=== PATIENT | female | born 1965 | race African-American/Black ===

== ENCOUNTER 2017-07-13 16:03 | Inpatient (IN) | payer OTHER ==
[2017-07-13 18:32] VITALS: BMI 29.2
--- NOTE | 2017-07-13 19:23 | HP ---
CIWA Score - CIWA Score Nausea/Vomitin Muscle Tremors: 3 Anxiety: 3 Agitation: 2 Paroxysmal Sweats: 1-Minimal Palms Moist Orientation: 0-Oriented Tacttile Disturbances: 2-Mild Itch/Numbness/Burn Auditory Disturbances: 2-Mild Harshness/Frighten Visual Disturbances: 2-Mild Sensitivity Headache: 2-Mild CIWA-Ar Total Score: 20 Admission ROS [facility] - HPI Chief Complaint: I AM HERE FOR DETOX FROM ALCOHOL AND COCAINE Allergies/Adverse Reactions: Allergies Allergy/AdvReac Type Severity Reaction Status Date / Time Fish Containing Products Allergy Severe Itching Verified 09/23/16 12:41 No Known Drug Allergies Allergy Unknown Verified 09/23/16 14:01 NKDA Allergy Uncoded 09/23/16 12:42 History of Present Illness: THIS 52 YEAR OLD FEMALE WITH ALCOHOL AND COCAINE DEPENDENCE,SEEKING DETOX,SEEN IN [facility] THIS MORNING,LAST TREATMENT 09/16/16 TO 09/20/16 SYNCOPE SEIZURE IN 2010 NICOTINE DEPENDENCE DEPRESSION LONGEST OF SOBRIETY 4 YEARS NEUROPATHY AMBULATE WITH CANE FOR 3 YEARS WEIGHT LOSS FELL TODAY,ABRASION RIGHT KNEE SEEN IN [facility] Exam Limitations: No Limitations - Ebola screening Have you traveled outside of the country in the last 21 days: No Have you had contact with anyone from an Ebola affected area: No Do you have a fever: No - Review of Systems Constitutional: Loss of Appetite, Malaise, Night Sweats, Changes in sleep, Weakness, Unintentional Wgt. Loss EENT: reports: Tearing, Nose Congestion Respiratory: reports: Other (ASTHMA) Cardiac: reports: Palpitations GI: reports: Nausea, Poor Appetite, Vomiting, Abdominal cramping : reports: No Symptoms Reported Musculoskeletal: reports: Back Pain, Muscle Pain Integumentary: reports: Dryness Neuro: reports: Headache, Tremors Endocrine: reports: No Symptoms Reported Hematology: reports: No Symptoms Reported Psychiatric: reports: No Sypmtoms Reported, Judgement Intact, Mood/Affect Appropiate, Orientated x3, Depressed Patient History - Patient Medical History Hx Anemia: Yes (ON IRON) Hx Asthma: Yes (ON ALBUTEROL INHALER) Hx Chronic Obstructive Pulmonary Disease (COPD): No Hx Cancer: No Hx Cardiac Disorders: No Hx Congestive Heart Failure: No Hx Hypertension: Yes (ON LISINOPRIL 20 MGS/DAY) Hx Hypercholesterolemia: No Hx Pacemaker: No HX Cerebrovascular Accident: No Hx Seizures: Yes (POST HEAD INJURY LAST 2010) Hx Dementia: No Hx Diabetes: No Hx Gastrointestinal Disorders: No Hx Genitourinary Disorders: No Hx Sexually Transmitted Disorders: No Hx Renal Disease (ESRD): No Hx Thyroid Disease: No Hx Human Immunodeficiency Virus (HIV): Yes (ON MEDS) Hx Hepatitis C: No Hx Depression: No Hx Suicide Attempt: No Hx Bipolar Disorder: No Hx Schizophrenia: No Other Medical History: NO SUICIDAL,NO HOMICIDAL,NEUROPATHY AMBULATE WITH CANE FOR 3 YEARS - Patient Surgical History Past Surgical History: No Hx Neurologic Surgery: No Hx Cataract Extraction: No Hx Cardiac Surgery: No Hx Lung Surgery: No Hx Breast Surgery: No Hx Breast Biopsy: No Hx Abdominal Surgery: No Hx Appendectomy: No Hx Cholecystectomy: No Hx Genitourinary Surgery: No Hx Section: No Hx Orthopedic Surgery: No Other Surgical History: Tubal ligation SINCE 1991 Anesthesia Reaction: No - PPD History Previous Implant?: Yes Documented Results: Positive w/proof PPD to be Administered?: No - Reproductive History Patient is a Female of Child Bearing Age (11 -55 yrs old): Yes Last Menstrual Period: 06/25/17 (CURRENTLY MENSTRUATING ) Patient : No - Smoking Cessation Smoking history: Never smoked - Substance & Tx. History Hx Alcohol Use: Yes Hx Substance Use: Yes Substance Use Type: Alcohol, Cocaine Hx Substance Use Treatment: Yes ([facility] 09/16/16 TO 09/23/16) - Substances Abused Alcohol Route: Oral Frequency: Daily Amount used: 6 OF 24 OZS OF BEER Age of first use: 18 Date of Last Use: 07/13/17 Cocaine Route: Smoking Frequency: 1-2 times per week Amount used: 300$ Age of first use: 21 Date of Last Use: 07/13/17 Family Disease History - Family Disease History Family Disease History: CA: Father (PROSTATE - ), Mother (COLON - ) Admission Physical Exam S - Vital Signs Vital Signs: Vital Signs - 24 hr 07/13/17 18:27 Temperature 97.0 F L Pulse Rate 65 Respiratory 16 Rate - Physical General Appearance: Yes: Moderate Distress, Tremorous, Irritable, Sweating, Anxious HEENTM: Yes: Normal ENT Inspection, MELVINA, Pharynx Normal Respiratory: Yes: Lungs Clear, Normal Breath Sounds, No Respiratory Distress Neck: Yes: Within Normal Limits, Supple, Trachea in good position Breast: Yes: Breast Exam Deferred Cardiology: Yes: Within Normal Limits, Regular Rhythm, Regular Rate, S1, S2 Abdominal: Yes: Within Normal Limits, Normal Bowel Sounds, Non Tender, Soft Genitourinary: Yes: Within Normal Limits Back: Yes: Muscle Spasm Musculoskeletal: Yes: Back pain, Muscle Pain Extremities: Yes: Tremors (ABRASION OF RIGHT KNEE), Other Neurological: Yes: lead sustainability specialist II-XII NML intact, Fully Oriented, Alert, Motor Strength 5/5, Other (ABRASION OF RIGHT KNEE AMBULATION WITH CANE FOR 3 YEARS FROM NEUROPATHY) Integumentary: Yes: Dry, Other (ABRASION OF RIGHT KNEE) Lymphatic: Yes: Within Normal Limits - Diagnostic (1) Alcohol dependence with uncomplicated withdrawal Current Visit: No Status: Chronic (2) Cocaine dependence Current Visit: No Status: Chronic Qualifiers: (3) HIV (human immunodeficiency virus infection) Current Visit: No Status: Chronic (4) History of positive PPD Current Visit: No Status: Chronic (5) Hypertension Current Visit: No Status: Chronic Qualifiers: (6) Use of cane as ambulatory aid Current Visit: No Status: Chronic (7) Weight loss Current Visit: Yes Status: Acute (8) Abrasion of right knee Current Visit: Yes Status: Acute Cleared for Admission [facility] - Detox or Rehab [facility] Level of Care: Medically Managed Detox Regimen/Protocol: Librium [facility] Breath Alcohol Content Breath Alcohol Content: 0 Urine Drug Screen - Results Drug Screen Negative: No Urine Drug Screen Results: ALICIA-Cocaine
[2017-07-13] MEDS ORDERED: diphenhydrAMINE HCL 50 MG CAPSULE PO PRN (19:48)
[2017-07-13] MEDS ORDERED: LOPERAMIDE HCL 2 MG CAPSULE PO PRN (19:48)
[2017-07-13] MEDS ORDERED: P-EPHED 60MG/TRIPROLIDI 2.5MG TABLET PO PRN (19:48)
[2017-07-13] MEDS ORDERED: hydrOXYzine PAMOATE 50 MG CAPSULE (FP) PO PRN (19:48)
[2017-07-13] MEDS ORDERED: chlordiazePOXIDE HCL 25 MG CAPSULE PO ONE (19:48)
[2017-07-13] MEDS ORDERED: MAGNESIUM HYDROX 2400MG/30ML ORAL SUSPENSION 30 ML CUP PO PRN (19:48)
[2017-07-13] MEDS ORDERED: MAGNESIUM CITRATE 300 ML BOTTLE PO PRN (19:48)
[2017-07-13] MEDS ORDERED: IBUPROFEN 400 MG TABLET (FP) PO PRN (19:48)
[2017-07-13] MEDS ORDERED: chlordiazePOXIDE HCL 25 MG CAPSULE PO PRN (19:48)
[2017-07-13] MEDS ORDERED: MAG HYDROX/AL HYDROX/SIMETH 30 ML UNIT-DOSE CUP PO PRN (19:48)
[2017-07-13] MEDS: THIAMINE HCL 100 MG TABLET (FP) PO SCH (22:49)
[2017-07-13] MEDS: GABAPENTIN 300 MG CAPSULE (FP) PO SCH (22:50)
[2017-07-13] MEDS: BACITRACIN 15 GM TUBE TOPICAL OINTMENT TP SCH (22:50)
[2017-07-13] MEDS: chlordiazePOXIDE HCL 25 MG CAPSULE PO SCH (22:50)
[2017-07-13] MEDS: BUDESONIDE/FORMETEROL FUMARATE 160/4.5 mcg INHALER IH SCH (23:01)
[2017-07-14] MEDS: chlordiazePOXIDE HCL 25 MG CAPSULE PO SCH ×4 (06:05→22:28)
[2017-07-14] MEDS: ALBUTEROL SO4 6.7 GM HFA INHALER IH PRN ×3 (06:27→22:28)
[2017-07-14] MEDS: ACETAMINOPHEN 325 MG TABLET (FP) PO PRN (06:38)
[2017-07-14] MEDS: guaiFENesin/D-METHORPHAN HB 10 ML UNIT-DOSE CUPS PO PRN ×3 (06:39→23:22)
--- NOTE | 2017-07-14 09:20 | CONSULT ---
[facility] Psychiatric Consult - Data Date of interview: 07/14/17 Admission source: [facility] Identifying data: This is the 52 years old Black female single mother of 6, resides alone ,supported by [facility]. Substance Abuse History: Patient reports started drinking at age of 18, daily 6 of 24 oz of beer, started cocaine at age of 21, she uses 2-3 times a week for $ 300. Medical History: Tube ligation, HIV+ dx in 1996, BA, HTN and Neuropathy. Psychiatric History: Patient denies psychiatric hospitalizations, no history of psychiatric treatment, reports that she has sleeping difficulties. Patient has been on Remeron, Trazodone and Seroquel at different times for insomnia. She does not want to restart medications but Ambien 5 mg PRN was prescribed on he previous detox treatment. Physical/Sexual Abuse/Trauma History: Denies Mental Status Exam - Mental Status Exam Alert and Oriented to: Place, Person Cognitive Function: Grossly Intact Patient Appearance: Well Groomed Affect: Appropriate, Mood Congruent, Normal Range Patient Behavior: Cooperative Speech Pattern: Clear Voice Loudness: Normal Thought Process: Goal Oriented Thought Disorder: Not Present Hallucinations: Denies Suicidal Ideation: Denies Homicidal Ideation: Denies Insight/Judgement: Fair Sleep: Fair Appetite: Good Muscle strength/Tone: Normal Gait/Station: Other (walks with cane.) Psychiatric Findings - Problem List (Dennis 1, 2,3) (1) Alcohol dependence with uncomplicated withdrawal Current Visit: No Status: Chronic (2) Cocaine dependence Current Visit: No Status: Chronic Qualifiers: (3) Substance-induced sleep disorder Current Visit: No Status: Chronic - Initial Treatment Plan Initial Treatment Plan: will add Ambien 5 mg po hs PRN, continue detox. protocol.
[2017-07-14] MEDS: PRENATAL VITAMINS W/ FOLIC ACID TABLET (FP) PO SCH (10:55)
[2017-07-14] MEDS: LISINOPRIL 20 MG TABLET (FP) PO SCH (10:56)
[2017-07-14] MEDS: EMTRICITABINE 200MG/TENOFOVIR 300MG PO SCH (10:56)
[2017-07-14] MEDS: GABAPENTIN 300 MG CAPSULE (FP) PO SCH ×2 (10:56→22:28)
[2017-07-14] MEDS: DARUNAVIR ETHANOLATE 800 MG TAB PO SCH (10:58)
[2017-07-14] MEDS: MENTHOL/PHENOL 1 EACH UD MM PRN (11:01)
[2017-07-14] MEDS: BACITRACIN 15 GM TUBE TOPICAL OINTMENT TP SCH ×2 (11:01→22:30)
[2017-07-14] MEDS: RITONAVIR 100 MG TABLET PO SCH (11:27)
[2017-07-14] MEDS: BUDESONIDE/FORMETEROL FUMARATE 160/4.5 mcg INHALER IH SCH ×2 (11:28→22:28)
--- NOTE | 2017-07-14 12:22 | PN ---
[facility] CIWA - CIWA Score Nausea/Vomitin Muscle Tremors: 4-Moderate,w/Arms Extend Anxiety: 4-Mod. Anxious/Guarded Agitation: 4-Moderately Restless Paroxysmal Sweats: 3 Orientation: 0-Oriented Tacttile Disturbances: 1-Very Mild Itch/Numbness Auditory Disturbances: 0-None Visual Disturbances: 0-None Headache: 1-Very Mild CIWA-Ar Total Score: 20 [facility] Progress Note (SOAP) Subjective: nausea, sweats, interrupted sleep, anxiety, tremors Objective: 07/14/17 12:21 Vital Signs - 8 hr 07/14/17 07/14/17 06:51 09:38 Temperature 98.1 F 97.1 F L Pulse Rate 65 73 Respiratory 16 18 Rate Blood Pressure 117/78 104/56 labs pending Assessment: 07/14/17 12:22 withdrawal sx Plan: cont detox, fluids
[2017-07-14 18:38] LABS: URINE APPEARANCE SLCLOUDY; URINE BILIRUBIN NEGATIVE (NEGATIVE); URINE BLOOD 3+ (NEGATIVE); URINE COLOR YELLOW; URINE GLUCOSE (UA) NEGATIVE (NEGATIVE); URINE KETONE NEGATIVE (NEGATIVE); URINE LEUK ESTERASE NEGATIVE (NEGATIVE); URINE NITRITE NEGATIVE (NEGATIVE); URINE PROTEIN NEGATIVE (NEGATIVE)
[2017-07-14 18:48] LABS: URINE BACTERIA RARE /hpf (NONE SEEN); URINE MUCUS RARE; URINE RBC 66 /hpf (0-3); URINE WBC 6 /hpf (3-5)
[2017-07-14] MEDS: ZOLPIDEM TARTRATE 5 MG TABLET PO PRN (22:28)
[2017-07-14] MEDS: THIAMINE HCL 100 MG TABLET (FP) PO SCH (22:28)
[2017-07-15] MEDS: guaiFENesin/D-METHORPHAN HB 10 ML UNIT-DOSE CUPS PO PRN ×3 (05:29→21:55)
[2017-07-15] MEDS: ALBUTEROL SO4 2.5/IPRATROPIUM 0.5 INH SOL 3 ML VIAL.NEB. NEB PRN ×3 (05:40→17:47)
[2017-07-15] MEDS: chlordiazePOXIDE HCL 25 MG CAPSULE PO SCH ×3 (07:39→17:47)
[2017-07-15] MEDS: EMTRICITABINE 200MG/TENOFOVIR 300MG PO SCH (10:42)
[2017-07-15] MEDS: LISINOPRIL 20 MG TABLET (FP) PO SCH (10:42)
[2017-07-15] MEDS: GABAPENTIN 300 MG CAPSULE (FP) PO SCH ×2 (10:42→21:52)
[2017-07-15] MEDS: BUDESONIDE/FORMETEROL FUMARATE 160/4.5 mcg INHALER IH SCH ×2 (10:42→21:56)
[2017-07-15] MEDS: PRENATAL VITAMINS W/ FOLIC ACID TABLET (FP) PO SCH (10:42)
[2017-07-15] MEDS: DARUNAVIR ETHANOLATE 800 MG TAB PO SCH (10:42)
[2017-07-15] MEDS: RITONAVIR 100 MG TABLET PO SCH (10:43)
[2017-07-15] MEDS: MENTHOL/PHENOL 1 EACH UD MM PRN (10:49)
[2017-07-15] MEDS: BACITRACIN 15 GM TUBE TOPICAL OINTMENT TP SCH ×2 (10:50→21:56)
--- NOTE | 2017-07-15 12:58 | PN ---
[facility] CIWA - CIWA Score Nausea/Vomitin-No Nausea/No Vomiting Muscle Tremors: 3 Anxiety: 2 Agitation: 3 Paroxysmal Sweats: 2 Orientation: 0-Oriented Tacttile Disturbances: 0-None Auditory Disturbances: 0-None Visual Disturbances: 0-None Headache: 0-None Present CIWA-Ar Total Score: 10 S Progress Note (SOAP) Subjective: sweats mild shakes interrupted sleep nausea Objective: 07/15/17 12:58 Vital Signs Temperature 98.2 F 07/15/17 11:28 Pulse Rate 79 07/15/17 11:28 Respiratory Rate 18 07/15/17 11:28 Blood Pressure 126/79 07/15/17 11:28 O2 Sat by Pulse Oximetry (%) Laboratory Tests 07/14/17 14:30 Urine Color Yellow Urine Appearance Slcloudy Urine pH 5.0 Ur Specific Sherrill 1.025 Urine Protein Negative Urine Glucose (UA) Negative Urine Ketones Negative Urine Blood 3+ H Urine Nitrite Negative Urine Bilirubin Negative Urine Urobilinogen 2.0 H Ur Leukocyte Esterase Negative Urine RBC 66 Urine WBC 6 Ur Epithelial Cells Rare Urine Bacteria Rare Urine Mucus Rare awake/alert ambulating no acute distress Assessment: 07/15/17 12:58 withdrawal sx Plan: continue detox increase fluids
--- NOTE | 2017-07-15 18:35 | EKG ---
Test Reason : Blood Pressure : / mmHG Vent. Rate : 059 BPM Atrial Rate : 059 BPM P-R Int : 154 ms QRS Dur : 110 ms QT Int : 482 ms P-R-T Axes : 059 038 043 degrees QTc Int : 477 ms SINUS BRADYCARDIA INCOMPLETE RIGHT BUNDLE BRANCH BLOCK MODERATE VOLTAGE CRITERIA FOR LVH, MAY BE NORMAL VARIANT BORDERLINE ECG NO PREVIOUS ECGS AVAILABLE REPEAT EKG IF CLINICALLY INDICATED Confirmed by JEANNE DURBIN MD ([id number]) on 07/15/2017 6:35:02 PM Referred By: Confirmed By:JEANNE DURBIN MD
[2017-07-15] MEDS: THIAMINE HCL 100 MG TABLET (FP) PO SCH (21:51)
[2017-07-15] MEDS: ACETAMINOPHEN 325 MG TABLET (FP) PO PRN (21:53)
[2017-07-15] MEDS: ALBUTEROL SO4 6.7 GM HFA INHALER IH PRN (21:57)
[2017-07-15] MEDS: chlordiazePOXIDE 5 MG CAPSULE PO SCH (22:28)
[2017-07-16] MEDS: ACETAMINOPHEN 325 MG TABLET (FP) PO PRN (05:47)
[2017-07-16] MEDS: guaiFENesin/D-METHORPHAN HB 10 ML UNIT-DOSE CUPS PO PRN ×2 (05:49→10:57)
[2017-07-16] MEDS: chlordiazePOXIDE 5 MG CAPSULE PO SCH ×3 (05:50→17:17)
[2017-07-16] MEDS: ALBUTEROL SO4 2.5/IPRATROPIUM 0.5 INH SOL 3 ML VIAL.NEB. NEB PRN ×3 (05:51→17:16)
[2017-07-16] MEDS: LISINOPRIL 20 MG TABLET (FP) PO SCH (10:54)
[2017-07-16] MEDS: BUDESONIDE/FORMETEROL FUMARATE 160/4.5 mcg INHALER IH SCH ×2 (10:54→22:24)
[2017-07-16] MEDS: GABAPENTIN 300 MG CAPSULE (FP) PO SCH ×2 (10:54→22:25)
[2017-07-16] MEDS: RITONAVIR 100 MG TABLET PO SCH (10:54)
[2017-07-16] MEDS: EMTRICITABINE 200MG/TENOFOVIR 300MG PO SCH (10:54)
[2017-07-16] MEDS: PRENATAL VITAMINS W/ FOLIC ACID TABLET (FP) PO SCH (10:54)
[2017-07-16] MEDS ORDERED: BACITRACIN 0.9 GM PACKET ONE (10:55)
[2017-07-16] MEDS: DARUNAVIR ETHANOLATE 800 MG TAB PO SCH (10:55)
[2017-07-16] MEDS: MENTHOL/PHENOL 1 EACH UD MM PRN (10:58)
--- NOTE | 2017-07-16 10:59 | PN ---
[facility] Progress Note (SOAP) Subjective: sweats tired Objective: 07/16/17 10:58 Vital Signs Temperature 98.2 F 07/16/17 10:40 Pulse Rate 82 07/16/17 10:40 Respiratory Rate 16 07/16/17 10:40 Blood Pressure 130/81 07/16/17 10:40 O2 Sat by Pulse Oximetry (%) awake/alert lying in bed no acute distress Assessment: 07/16/17 10:58 withdrawal sx Plan: continue detox increase fluids d/c in am
[2017-07-16] MEDS: BACITRACIN 15 GM TUBE TOPICAL OINTMENT TP SCH ×2 (11:35→22:39)
[2017-07-16] MEDS: ZOLPIDEM TARTRATE 5 MG TABLET PO PRN (22:25)
[2017-07-16] MEDS: THIAMINE HCL 100 MG TABLET (FP) PO SCH (22:25)
[2017-07-16] MEDS: chlordiazePOXIDE HCL 10 MG CAPSULE PO SCH (22:39)
[2017-07-17] MEDS: chlordiazePOXIDE HCL 10 MG CAPSULE PO SCH (06:12)
[2017-07-17] MEDS: ALBUTEROL SO4 2.5/IPRATROPIUM 0.5 INH SOL 3 ML VIAL.NEB. NEB PRN (06:17)
--- NOTE | 2017-07-17 08:57 | DS ---
[facility] Detox Discharge Summary Admission Date: 07/13/17 Discharge Date: 07/17/17 - History Present History: Alcohol Dependence Pertinent Past History: insomnia, anxiety, depression, HIV+, peripheral neuropathy - Physical Exam Results Vital Signs: Vital Signs Temperature 98.2 F 07/17/17 06:53 Pulse Rate 67 07/17/17 06:53 Respiratory Rate 18 07/17/17 06:53 Blood Pressure 127/84 07/17/17 06:53 O2 Sat by Pulse Oximetry (%) Laboratory Tests 07/14/17 14:30 Urine Color Yellow Urine Appearance Slcloudy Urine pH 5.0 Ur Specific [place] 1.025 Urine Protein Negative Urine Glucose (UA) Negative Urine Ketones Negative Urine Blood 3+ H Urine Nitrite Negative Urine Bilirubin Negative Urine Urobilinogen 2.0 H Ur Leukocyte Esterase Negative Urine RBC 66 Urine WBC 6 Ur Epithelial Cells Rare Urine Bacteria Rare Urine Mucus Rare Pertinent Admission Physical Exam Findings: withdrawal sx - Treatment Hospital Course: Detox Protocol Followed, Detoxed Safely, Responded well, Discharged Condition Good, Rehab Referral Accepted Patient has Accepted a Rehab Referral to: Yes - Medication Discharge Medications: Ambulatory Orders Darunavir Ethanolate [Prezista -] 800 mg PO DAILY 09/16/16 Emtricitabine/Tenofovir [Truvada -] 1 tab PO DAILY 09/16/16 Ritonavir [Norvir -] 100 mg PO DAILY 09/16/16 Gabapentin [Neurontin] 300 mg PO BID 09/24/16 Albuterol Sulfate Inhaler - [Ventolin HFA Inhaler -] 2 inh PO Q4H PRN #1 inhaler 10/08/16 Budesonide/Formeterol Fumarate [SYMBICORT 160/4.5mcg -] 1 inh PO BID #1 inhaler 10/08/16 Lisinopril [Prinivil] 20 mg PO DAILY #30 tablet 10/08/16 - Diagnosis (1) Abrasion of right knee Current Visit: Yes Status: Acute (2) Neuropathy Current Visit: Yes Status: Chronic (3) Alcohol dependence with uncomplicated withdrawal Current Visit: Yes Status: Chronic (4) HIV (human immunodeficiency virus infection) Current Visit: Yes Status: Chronic (5) Cocaine dependence Current Visit: Yes Status: Chronic Qualifiers: Substance use status: uncomplicated Qualified Code(s): F14.20 - Cocaine dependence, uncomplicated (6) History of positive PPD Current Visit: No Status: Inactive (7) Hypertension Current Visit: Yes Status: Chronic Qualifiers: Hypertension type: essential hypertension Qualified Code(s): I10 - Essential (primary) hypertension (8) Substance-induced sleep disorder Current Visit: Yes Status: Acute (9) Use of cane as ambulatory aid Current Visit: Yes Status: Chronic - AMA Did Patient Leave Against Medical Advice: No
--- NOTE | 2017-07-17 09:33 | PN ---
S Progress Note Note: cbc and cmp ordered before pt is to be d/c. will call pt is any abnormality and pt in agreement.
[2017-07-17] MEDS: BUDESONIDE/FORMETEROL FUMARATE 160/4.5 mcg INHALER IH SCH (09:38)
[2017-07-17] MEDS: PRENATAL VITAMINS W/ FOLIC ACID TABLET (FP) PO SCH (09:38)
[2017-07-17] MEDS: EMTRICITABINE 200MG/TENOFOVIR 300MG PO SCH (09:38)
[2017-07-17] MEDS: ALBUTEROL SO4 6.7 GM HFA INHALER IH PRN (09:43)
[2017-07-17] MEDS: RITONAVIR 100 MG TABLET PO SCH (09:56)
[2017-07-17] MEDS: BACITRACIN 15 GM TUBE TOPICAL OINTMENT TP SCH (09:56)
[2017-07-17] MEDS: DARUNAVIR ETHANOLATE 800 MG TAB PO SCH (09:57)
[2017-07-17] MEDS: LISINOPRIL 20 MG TABLET (FP) PO SCH (09:57)
[2017-07-17] MEDS: GABAPENTIN 300 MG CAPSULE (FP) PO SCH (09:57)
[2017-07-17 10:26] VITALS: BP 133/89; PULSE 69; TEMP 98.1
[2017-07-17 13:26] LABS: BASOPHIL 0.7 % (0-2.0); EOSINOPHIL 1.3 % (0-4.5); MCH 27.3 pg (25.7-33.7); MEAN CELL VOLUME 85.3 fl (80-96); MEAN PLT VOLUME 9.7 fl (7.5-11.1); NEUTROPHILS 59.1 % (42.8-82.8); PLATELET COUNT 179 K/MM3 (134-434); RDW 16.6 % (11.6-15.6); WHITE BLOOD COUNT 4.8 K/mm3 (4.0-10.0)
[2017-07-17 13:47] LABS: ALBUMIN 3.3 g/dl (3.4-5.0); ALK PHOS 115 U/L (45-117); ANION GAP 7 (8-16); BILIRUBIN,TOTAL 0.6 mg/dL (0.2-1.0); CALCIUM 8.5 mg/dL (8.5-10.1); CO2 31 mmol/L (21-32); CREATININE 0.5 mg/dL (0.55-1.02); GLUCOSE,RANDOM 86 mg/dL (74-106); SGOT/AST 14 U/L (15-37); SGPT/ALT 24 U/L (12-78)
== END 2017-07-17 10:20 | disposition home or self-care (01) | DRG 774 ==
LOC: YASAS 16:03 → Y6N 19:52
PROVIDERS: ADMIT Internal Medicine Addiction Medicine; ATTEND Internal Medicine Addiction Medicine
PROC: HZ2ZZZZ Detoxification Services for Substance Abuse Treatment (ICD-10-PCS; principal; 2017-07-13)
DX: F10.230 Alcohol dependence with withdrawal, uncomplicated (principal); F14.20 Cocaine dependence, uncomplicated; F19.282 Other psychoactive substance dependence with psychoactive substance-induced sleep disorder; J45.909 Unspecified asthma, uncomplicated; I10 Essential (primary) hypertension; Z21 Asymptomatic human immunodeficiency virus [HIV] infection status; G62.9 Polyneuropathy, unspecified; R76.11 Nonspecific reaction to tuberculin skin test without active tuberculosis; R26.2 Difficulty in walking, not elsewhere classified; D64.9 Anemia, unspecified; Z99.89 Dependence on other enabling machines and devices; Z87.898 Personal history of other specified conditions; Z91.013 Allergy to seafood; Z86.69 Personal history of other diseases of the nervous system and sense organs
CPT/HCPCS: 36415; 80053; 81003; 81015; 85025; 86593; 93005; 93010; 94640

== ENCOUNTER 2019-05-19 09:08 | Inpatient (IN) | payer OTHER ==
[2019-05-19 11:38] VITALS: BMI 31.1
--- NOTE | 2019-05-19 12:34 | HP ---
CIWA Score - Admission Criteria [facility] Guidelines: Admission for Medically Managed Detox: Requires at least one of the followin. CIWA greater than 12 2. Seizures within the past 24 hours 3. Delirium tremens within the past 24 hours 4. Hallucinations within the past 24 hours 5. Acute intervention needed for co occurring medical disorder 6. Acute intervention needed for co occurring psychiatric disorder 7. Severe withdrawal that cannot be handled at a lower level of care (continued vomiting, continued diarrhea, abnormal vital signs) requiring intravenous medication and/or fluids 8. Admission ROS [facility] Chief Complaint: 54 y/o PMH HIV (VL 30's, CD4 410 per pt), asthma, HTN, depression, who presents for rehab from alcohol and cocaine. Allergies/Adverse Reactions: Allergies Allergy/AdvReac Type Severity Reaction Status Date / Time Fish Containing Products Allergy Severe Itching Verified 05/19/19 11:28 No Known Drug Allergies Allergy Unknown Verified 05/19/19 11:28 History of Present Illness: 54 y/o F with PMH HIV (VL 30's, CD4 410 per pt), asthma, HTN, depression who presents for rehab from alcohol and cocaine. States that her last drink was yesterday she had "one drink of liquor." Could not specify. Usually drinks a 6- 8 pack of beer on each day of the weekend. Longest sobriety 3 months, states was aided by the need to take care of her grandchildren. Drinks because she is bored and feels lonely. Last cocaine use was Friday. Had smoked cocaine between May 13- most recently, 1/2 -1 gram/ day. She uses this amount on weekends, used to use daily. Denies IVDA. States that she has had complications from cocaine in past and was hospitalized at [facility] on tele monitoring for arrhythmia. Unable to explain further. Of note, pt states that she saw her HIV doc, Dr. Stark at [facility] and recently d/c Truvada/norvir/prezista since she was having frequent falls. on , she is to start her new HIV treatment. She is interested in a 3/4 house after she is done with rehab so she can eventually have her own place. She currently lives with her daughter. PMH: as above PsxH: tubal ligation, laser tx for varicose veins meds: ventolin, symbicort, lisinopril, neurontin allergies: fish - itching FH: sister- MS at age 62 - was an alcoholic. mother - colon CA father - CA of rectum SH: lives w daughter. denies cigarette smoking. alcohol and cocaine use as above. denies other drug use. Exam Limitations: No Limitations - Ebola screening Have you traveled outside of the country in the last 21 days: No (N) Have you had contact with anyone from an Ebola affected area: No Do you have a fever: No - Review of Systems Constitutional: Malaise EENT: reports: No Symptoms Reported Respiratory: reports: Cough, Shortness of Breath Cardiac: reports: No Symptoms Reported GI: reports: No Symptoms Reported : reports: No Symptoms Reported Musculoskeletal: reports: Back Pain, Joint Pain Integumentary: reports: No Symptoms Reported Neuro: reports: No Symptoms reported Endocrine: reports: No Symptoms Reported Hematology: reports: No Symptoms Reported, Easy Bruising Psychiatric: reports: No Sypmtoms Reported Patient History - Patient Medical History Hx Anemia: Yes (ON IRON) Hx Asthma: Yes Hx Chronic Obstructive Pulmonary Disease (COPD): No Hx Cancer: No Hx Cardiac Disorders: No Hx Congestive Heart Failure: No Hx Hypertension: Yes Hx Hypercholesterolemia: No Hx Pacemaker: No HX Cerebrovascular Accident: No Hx Seizures: No Hx Dementia: No Hx Diabetes: No Hx Gastrointestinal Disorders: No Hx Genitourinary Disorders: No Hx Sexually Transmitted Disorders: No Hx Renal Disease (ESRD): No Hx Thyroid Disease: No Hx Human Immunodeficiency Virus (HIV): Yes (ON MEDS) Hx Hepatitis C: No Hx Depression: Yes Hx Suicide Attempt: Yes (1984) Hx Bipolar Disorder: No Hx Schizophrenia: No - Patient Surgical History Past Surgical History: No Hx Neurologic Surgery: No Hx Cataract Extraction: No Hx Cardiac Surgery: No Hx Lung Surgery: No Hx Breast Surgery: No Hx Breast Biopsy: No Hx Abdominal Surgery: No Hx Appendectomy: No Hx Cholecystectomy: No Hx Genitourinary Surgery: No Hx Section: No Hx Orthopedic Surgery: No Other Surgical History: Tubal ligation SINCE 1991, LASER TREATMENT FOR VARICOSE VEINS Anesthesia Reaction: No - PPD History Documented Results: Positive w/o proof PPD to be Administered?: No - Reproductive History Patient is a Female of Child Bearing Age (11 -55 yrs old): Yes Last Menstrual Period: 10/19/18 Patient : No - Smoking Cessation Smoking history: Never smoked - Substance & Tx. History Hx Alcohol Use: Yes Substance Use Type: Alcohol, Cocaine Hx Substance Use Treatment: Yes ([facility] detox 2017, rehab 2016, detox 2016) - Substances abused Crack Substance route: Smoking Frequency: 1-2 times per week Amount used: $100 Age of first use: 21 Date of last use: 05/16/19 None Substance route: Oral Frequency: 3-6 times per week Amount used: 24oz beer, 1 pint vodka Age of first use: 19 Date of last use: 05/18/19 Alcohol Substance route: Oral Frequency: 3-6 times per week Amount used: 24oz beer, 1 pint vodka Age of first use: 19 Date of last use: 05/18/19 Family Disease History - Family Disease History Family Disease History: CA: Father (PROSTATE - ), Mother (COLON - ) Admission Physical Exam S - Vital Signs Vital Signs: Vital Signs - 24 hr 05/19/19 11:23 Temperature 97.1 F L Pulse Rate 53 L Respiratory 16 Rate Blood Pressure 136/77 - Physical General Appearance: Yes: Within Normal Limits, Other (+sitting in rolling walker ) HEENTM: Yes: Within Normal Limits Respiratory: Yes: Within Normal Limits Neck: Yes: Supple Breast: Yes: Breast Exam Deferred Cardiology: Yes: Regular Rhythm, Regular Rate, S1, S2 Abdominal: Yes: Flat, Soft Genitourinary: Yes: Within Normal Limits Back: Yes: Within Normal Limits Musculoskeletal: Yes: Joint Stiffness, Muscle Pain Extremities: Yes: Within Normal Limits, Other (+varicose veins LE b/l) Neurological: Yes: commercial property administrator II-XII NML intact Integumentary: Yes: Within Normal Limits Lymphatic: Yes: Within Normal Limits - Diagnostic (1) Alcohol use Current Visit: Yes Status: Acute (2) Dehydration Current Visit: Yes Status: Acute (3) Weakness Current Visit: Yes Status: Acute (4) Cocaine dependence Current Visit: No Status: Chronic Qualifiers: Substance use status: uncomplicated Qualified Code(s): F14.20 - Cocaine dependence, uncomplicated (5) HIV (human immunodeficiency virus infection) Current Visit: No Status: Chronic (6) Hypertension Current Visit: No Status: Chronic Qualifiers: Hypertension type: essential hypertension Qualified Code(s): I10 - Essential (primary) hypertension (7) Frequent falls Current Visit: Yes Status: Chronic (8) Walker as ambulation aid Current Visit: Yes Status: Acute (9) Neuropathy Current Visit: Yes Status: Chronic Cleared for Admission [facility] - Detox or Rehab [facility] Level of Care: Medically Supervised Detox Regimen/Protocol: Not Applicable Claeared for Rehab Admission: Yes Breathalyzer - Breathalyzer Breathalyzer: 0 Urine Drug Screen - Test Device Lot number: [id number] Expiration date: 01/07/21 - Control Is test valid?: Yes - Results Drug screen NEGATIVE: No Urine drug screen results: ALICIA-Cocaine Inpatient Rehab Admission - Rehab Decision to Admit Inpatient rehab admission?: Yes - Initial Determination Are CD services needed?: Yes Free of communicable disease: Yes Not in need of hospitalization: Yes - Rehab Admission Criteria Previous failed treatment: Yes Poor recovery environment: Yes Comorbidities: Yes Lacks judgement: No Patient is meeting Inpatient Rehab admission criteria:: Yes
[2019-05-19] MEDS ORDERED: MAGNESIUM HYDROX 2400MG/30ML ORAL SUSPENSION 30 ML CUP PO PRN (12:52)
[2019-05-19] MEDS ORDERED: P-EPHED 60MG/TRIPROLIDI 2.5MG TABLET PO PRN (12:52)
[2019-05-19] MEDS ORDERED: guaiFENesin 200 MG/10 ML 10 ML UNIT-DOSE CUPS PO PRN (12:52)
[2019-05-19] MEDS ORDERED: IBUPROFEN 400 MG TABLET (FP) PO PRN (12:52)
[2019-05-19] MEDS ORDERED: LOPERAMIDE HCL 2 MG CAPSULE PO PRN (12:52)
[2019-05-19] MEDS ORDERED: MENTHOL/PHENOL 1 EACH UD MM PRN (12:52)
[2019-05-19] MEDS ORDERED: MAG HYDROX/AL HYDROX/SIMETH 30 ML UNIT-DOSE CUP PO PRN (12:52)
--- NOTE | 2019-05-19 13:13 | PN ---
[facility] Progress Note Note: this 54 years old female with alcohol dependence with cocaine dependence,hiv, neuropathy,ambualation with walker frequent fall,need rehab,asthma,constipation
--- NOTE | 2019-05-19 13:17 | PN ---
[facility] Progress Note Note: i personally present,review the history and physical examination of this patient by Dr.Abbi Caicedo,discussed plan of treatment, diagnosis and medical management ,I agreed and concurred that this patient need in patient rehab
--- NOTE | 2019-05-19 13:20 | HP ---
CIWA Score - Admission Criteria [facility] Guidelines: Admission for Medically Managed Detox: Requires at least one of the followin. CIWA greater than 12 2. Seizures within the past 24 hours 3. Delirium tremens within the past 24 hours 4. Hallucinations within the past 24 hours 5. Acute intervention needed for co occurring medical disorder 6. Acute intervention needed for co occurring psychiatric disorder 7. Severe withdrawal that cannot be handled at a lower level of care (continued vomiting, continued diarrhea, abnormal vital signs) requiring intravenous medication and/or fluids 8. Admission [facility] - HPI Allergies/Adverse Reactions: Allergies Allergy/AdvReac Type Severity Reaction Status Date / Time Fish Containing Products Allergy Severe Itching Verified 05/19/19 11:28 No Known Drug Allergies Allergy Unknown Verified 05/19/19 11:28 - Ebola screening Have you traveled outside of the country in the last 21 days: No (N) Have you had contact with anyone from an Ebola affected area: No Do you have a fever: No Patient History - Patient Medical History Hx Anemia: Yes (ON IRON) Hx Asthma: Yes Hx Chronic Obstructive Pulmonary Disease (COPD): No Hx Cancer: No Hx Cardiac Disorders: No Hx Congestive Heart Failure: No Hx Hypertension: Yes Hx Hypercholesterolemia: No Hx Pacemaker: No HX Cerebrovascular Accident: No Hx Seizures: No Hx Dementia: No Hx Diabetes: No Hx Gastrointestinal Disorders: No Hx Genitourinary Disorders: No Hx Sexually Transmitted Disorders: No Hx Renal Disease (ESRD): No Hx Thyroid Disease: No Hx Human Immunodeficiency Virus (HIV): Yes (ON MEDS) Hx Hepatitis C: No Hx Depression: Yes Hx Suicide Attempt: Yes (1984) Hx Bipolar Disorder: No Hx Schizophrenia: No - Patient Surgical History Past Surgical History: No Hx Neurologic Surgery: No Hx Cataract Extraction: No Hx Cardiac Surgery: No Hx Lung Surgery: No Hx Breast Surgery: No Hx Breast Biopsy: No Hx Abdominal Surgery: No Hx Appendectomy: No Hx Cholecystectomy: No Hx Genitourinary Surgery: No Hx Section: No Hx Orthopedic Surgery: No Other Surgical History: Tubal ligation SINCE 1991, LASER TREATMENT FOR VARICOSE VEINS Anesthesia Reaction: No - PPD History Documented Results: Positive w/o proof - Reproductive History Last Menstrual Period: 10/19/18 Patient : No - Smoking Cessation Smoking history: Never smoked - Substances abused Alcohol Substance route: Oral Frequency: 3-6 times per week Amount used: 05/03oz beer, 1 pint vodka Age of first use: 19 Date of last use: 05/18/19 Crack Substance route: Smoking Frequency: 1-2 times per week Amount used: $100 Age of first use: 21 Date of last use: 05/16/19 None Substance route: Oral Frequency: 3-6 times per week Amount used: 05/03oz beer, 1 pint vodka Age of first use: 19 Date of last use: 05/18/19 Family Disease History - Family Disease History Family Disease History: CA: Father (PROSTATE - ), Mother (COLON - ) Admission Physical Exam BHS - Vital Signs Vital Signs: Vital Signs - 24 hr 05/19/19 11:23 Temperature 97.1 F L Pulse Rate 53 L Respiratory 16 Rate Blood Pressure 136/77 Breathalyzer - Breathalyzer Breathalyzer: 0 Urine Drug Screen - Test Device Lot number: [id number] Expiration date: 01/07/21 - Control Is test valid?: Yes - Results Drug screen NEGATIVE: No Urine drug screen results: ALICIA-Cocaine Inpatient Rehab Admission - Rehab Decision to Admit Inpatient rehab admission?: Yes - Initial Determination Are CD services needed?: Yes Free of communicable disease: Yes Not in need of hospitalization: Yes - Rehab Admission Criteria Previous failed treatment: Yes Poor recovery environment: Yes Comorbidities: Yes Lacks judgement: No Patient is meeting Inpatient Rehab admission criteria:: Yes
[2019-05-19 14:23] LABS: HEMATOCRIT 32.5 % (32.4-45.2); HEMOGLOBIN 10.5 GM/dL (10.7-15.3); MCH 27.8 pg (25.7-33.7); MCHC 32.4 g/dl (32.0-36.0); MEAN CELL VOLUME 85.7 fl (80-96); MEAN PLT VOLUME 9.8 fl (7.5-11.1); RDW 15.3 % (11.6-15.6); WHITE BLOOD COUNT 3.9 K/mm3 (4.0-10.0)
[2019-05-19 14:33] LABS: ALBUMIN 3.6 g/dl (3.4-5.0); BILIRUBIN,TOTAL 0.4 mg/dL (0.2-1); CALCIUM 8.7 mg/dL (8.5-10.1); CREATININE 0.6 mg/dL (0.55-1.3); POTASSIUM 4.1 mmol/L (3.5-5.1)
[2019-05-19 14:48] LABS: PLATELET COUNT 165 K/MM3 (134-434)
[2019-05-19] MEDS ORDERED: PT OWN MED DRAWER 7, Y5N ONE (17:18)
[2019-05-19] MEDS: ACETAMINOPHEN 325 MG TABLET (FP) PO PRN ×2 (17:19→21:37)
[2019-05-19 19:18] LABS: URINE APPEARANCE CLEAR; URINE BILIRUBIN NEGATIVE (NEGATIVE); URINE COLOR YELLOW; URINE GLUCOSE (UA) NEGATIVE (NEGATIVE); URINE KETONE NEGATIVE (NEGATIVE); URINE LEUK ESTERASE NEGATIVE (NEGATIVE); URINE NITRITE NEGATIVE (NEGATIVE); URINE PROTEIN NEGATIVE (NEGATIVE)
[2019-05-19] MEDS: DOCUSATE SODIUM 100 MG CAPSULE (FP) PO SCH (21:35)
[2019-05-19] MEDS: BUDESONIDE/FORMETEROL FUMARATE 160/4.5 mcg INHALER IH SCH (21:35)
[2019-05-19] MEDS: THIAMINE HCL 100 MG TABLET (FP) PO SCH (21:35)
[2019-05-19] MEDS ORDERED: MELATONIN 5 MG TABLETS PO PRN (22:00)
[2019-05-20] MEDS: ALBUTEROL SO4 8 GM HFA INHALER IH PRN ×2 (06:18→21:19)
[2019-05-20] MEDS ORDERED: PT OWN MED DRAWER 7, Y5N ONE ×2 (08:49→21:17)
[2019-05-20] MEDS: PRENATAL VITAMINS W/ FOLIC ACID TABLET (FP) PO SCH (09:18)
[2019-05-20] MEDS: BUDESONIDE/FORMETEROL FUMARATE 160/4.5 mcg INHALER IH SCH (09:18)
[2019-05-20] MEDS: DOCUSATE SODIUM 100 MG CAPSULE (FP) PO SCH ×2 (09:18→21:17)
[2019-05-20] MEDS: LISINOPRIL 20 MG TABLET (FP) PO SCH (09:18)
--- NOTE | 2019-05-20 12:17 | CONSULT ---
[facility] Psychiatric Consult - Data Date of interview: 05/20/19 Admission source: Self-referred Identifying data: Ms Rodriguez is a 54 years old single, mother of 6 children, unemployed receving [facility] [employer], domiciled seeking detox treatment for alcohol and cocaine Substance Abuse History: Reports history of alcohol and crack cocaine use. Refer to addiction counselor's summary for further information Medical History: Significant for anemia, bronchial asthma, hypertension, HIV+ since 1996, neuropathy, PPD+, history of tubal ligation and laser surgery for varicose vein Psychiatric History: Patient reports receiving psychiatric treament [facility]. She said that she was diagnosed with depression and she was treated with Remeron. She has no recollection of the time she was in [facility] but said she served 4.5 years there. Denies receiving psychiatric treatment since she has been released from [facility]. Denies previous psychiatric hospitalization or suicidal attempt. At present denies experiencing depressive symptoms, S/H ideations Physical/Sexual Abuse/Trauma History: Denies history of emotional, physical or sexual abuse as well as DV relationship Additional Comment: Reports multiple previous arrests including 3 felony convictions. Denies bein on parole/probation at present Mental Status Exam - Mental Status Exam Alert and Oriented to: Time, Person Cognitive Function: Fair Patient Appearance: Well Groomed Mood: Hopeful, Euthymic Affect: Appropriate Patient Behavior: Cooperative Speech Pattern: Clear Voice Loudness: Normal Thought Process: Intact, Goal Oriented Thought Disorder: Not Present Hallucinations: Denies Suicidal Ideation: Denies Homicidal Ideation: Denies Insight/Judgement: Fair Sleep: Well Appetite: Good Muscle strength/Tone: Normal Gait/Station: Normal Psychiatric Findings - Problem List ([place] 1, 2,3) (1) Depressive disorder Current Visit: Yes Status: Chronic (2) Substance induced mood disorder Current Visit: Yes Status: Ruled-out (3) Alcohol dependence Current Visit: Yes Status: Acute (4) Cocaine dependence Current Visit: Yes Status: Acute (5) Neuropathy Current Visit: Yes Status: Chronic (6) HIV (human immunodeficiency virus infection) Current Visit: No Status: Chronic (7) Hypertension Current Visit: No Status: Chronic Qualifiers: Hypertension type: essential hypertension Qualified Code(s): I10 - Essential (primary) hypertension (8) Bronchial asthma Current Visit: Yes Status: Chronic - Initial Treatment Plan Initial Treatment Plan: Continue inpatient rehabilitation
--- NOTE | 2019-05-20 17:13 | EKG ---
Test Reason : Blood Pressure : / mmHG Vent. Rate : 053 BPM Atrial Rate : 053 BPM P-R Int : 182 ms QRS Dur : 094 ms QT Int : 500 ms P-R-T Axes : 058 035 040 degrees QTc Int : 469 ms SINUS BRADYCARDIA OTHERWISE NORMAL ECG WHEN COMPARED WITH ECG OF 13-JUL-2017 20:04, INCOMPLETE RIGHT BUNDLE BRANCH BLOCK IS NO LONGER PRESENT Confirmed by KAT SHAH, ALISHA ([id number]) on 05/20/2019 5:12:47 PM Referred By: JED LOCKETT Confirmed By:ALISHA STEPHENS MD
[2019-05-20] MEDS: ACETAMINOPHEN 325 MG TABLET (FP) PO PRN (21:18)
[2019-05-20] MEDS: BUDESONIDE/FORMETEROL FUMARATE 160/4.5 mcg INHALER IH PRN (21:18)
[2019-05-20] MEDS: THIAMINE HCL 100 MG TABLET (FP) PO SCH (21:18)
[2019-05-21] MEDS: ALBUTEROL SO4 8 GM HFA INHALER IH PRN ×2 (07:02→18:55)
[2019-05-21] MEDS: BUDESONIDE/FORMETEROL FUMARATE 160/4.5 mcg INHALER IH PRN ×2 (07:02→21:13)
[2019-05-21] MEDS ORDERED: PT OWN MED DRAWER 7, Y5N ONE ×3 (09:04→21:13)
[2019-05-21] MEDS: LISINOPRIL 20 MG TABLET (FP) PO SCH (09:54)
[2019-05-21] MEDS: PRENATAL VITAMINS W/ FOLIC ACID TABLET (FP) PO SCH (09:54)
[2019-05-21] MEDS: DOCUSATE SODIUM 100 MG CAPSULE (FP) PO SCH ×2 (09:54→21:12)
[2019-05-21] MEDS: THIAMINE HCL 100 MG TABLET (FP) PO SCH (21:12)
[2019-05-21] MEDS: ACETAMINOPHEN 325 MG TABLET (FP) PO PRN (21:13)
[2019-05-22] MEDS: ALBUTEROL SO4 8 GM HFA INHALER IH PRN (06:24)
[2019-05-22] MEDS: BUDESONIDE/FORMETEROL FUMARATE 160/4.5 mcg INHALER IH PRN (06:24)
[2019-05-22] MEDS: DOCUSATE SODIUM 100 MG CAPSULE (FP) PO SCH ×2 (09:25→21:26)
[2019-05-22] MEDS: PRENATAL VITAMINS W/ FOLIC ACID TABLET (FP) PO SCH (09:25)
[2019-05-22] MEDS: LISINOPRIL 20 MG TABLET (FP) PO SCH (09:25)
[2019-05-22] MEDS: THIAMINE HCL 100 MG TABLET (FP) PO SCH (21:26)
[2019-05-22] MEDS ORDERED: PT OWN MED DRAWER 7, Y5N ONE (21:27)
[2019-05-23] MEDS: BUDESONIDE/FORMETEROL FUMARATE 160/4.5 mcg INHALER IH PRN ×2 (06:25→21:37)
[2019-05-23] MEDS: ALBUTEROL SO4 8 GM HFA INHALER IH PRN (06:25)
[2019-05-23] MEDS ORDERED: PT OWN MED DRAWER 7, Y5N ONE (06:25)
[2019-05-23] MEDS: PRENATAL VITAMINS W/ FOLIC ACID TABLET (FP) PO SCH (10:08)
[2019-05-23] MEDS: DOCUSATE SODIUM 100 MG CAPSULE (FP) PO SCH ×2 (10:09→21:37)
[2019-05-23] MEDS: LISINOPRIL 20 MG TABLET (FP) PO SCH (10:09)
[2019-05-23] MEDS: THIAMINE HCL 100 MG TABLET (FP) PO SCH (21:37)
[2019-05-24] MEDS: BUDESONIDE/FORMETEROL FUMARATE 160/4.5 mcg INHALER IH PRN (06:43)
[2019-05-24] MEDS: ALBUTEROL SO4 8 GM HFA INHALER IH PRN (06:43)
[2019-05-24] MEDS: DOCUSATE SODIUM 100 MG CAPSULE (FP) PO SCH (09:32)
[2019-05-24] MEDS: LISINOPRIL 20 MG TABLET (FP) PO SCH (09:32)
[2019-05-24] MEDS: PRENATAL VITAMINS W/ FOLIC ACID TABLET (FP) PO SCH (09:32)
--- NOTE | 2019-05-24 10:36 | PN ---
[facility] Progress Note (SOAP) Subjective: PT DECLINED TO CONTINUE WITH REHAB FOR PERSONAL REASONS STATING TO NURSE "I DON' T WANT TO BE IN INPATIENT ANY MORE. I JUST WANT TO GO TO THE OUTPATIENT RIGHT NOW". PT ATTENDED AND PARTICIPATED IN MOST UNIT GROUP ACTIVITIES. I SAW PT THIS MORNING WHO REPORTS SHE HAS A PRIMARY CARE PROVIDER, DR. GUILLAUME AT [facility]. PT STATED SHE HAS NEXT APPOINTMENT WITH HER DOCTOR ON 07/19/19 AND HAS HER MEDICATIONS AT HOME. PT REPORTS SHE IS STARTING NEW ANTIRETROVIRAL REGIMEN WHEN SHE SEES HER DOCTOR AND HAS BEEN OFF OF THE PREVIOUS REGIMEN/NOT TAKING CURRENTLY. PT HAS BEEN REFERRED TO [facility] ON [address] [place], [place] FOR CD AFTERCARE. PT IS ALERT OX 3. DENIES S/H/I. Objective: 05/24/19 11:02 Vital Signs - 24 hr 05/24/19 05/24/19 03:30 07: Temperature 97.7 F Pulse Rate 54 L Respiratory 18 18 Rate Blood Pressure 139/82 Laboratory Tests 05/19/19 05/19/19 05/19/19 13:10 13:10 13:10 WBC 3.9 L RBC 3.80 Hgb 10.5 L Hct 32.5 MCV 85.7 MCH 27.8 MCHC 32.4 RDW 15.3 Plt Count 165 MPV 9.8 Sodium 141 Potassium 4.1 Chloride 108 H Carbon Dioxide 29 Anion Gap 5 L BUN 15.0 Creatinine 0.6 Est GFR (CKD-EPI)AfAm 121.46 Est GFR (CKD-EPI)NonAf 104.80 Random Glucose 88 Calcium 8.7 Total Bilirubin 0.4 AST 30 ALT 31 Alkaline Phosphatase 145 H Total Protein 8.0 Albumin 3.6 Urine Color Urine Appearance Urine pH Ur Specific [place] Urine Protein Urine Glucose (UA) Urine Ketones Urine Blood Urine Nitrite Urine Bilirubin Urine Urobilinogen Ur Leukocyte Esterase RPR Titer Nonreactive 05/19/19 15:40 WBC RBC Hgb Hct MCV MCH MCHC RDW Plt Count MPV Sodium Potassium Chloride Carbon Dioxide Anion Gap BUN Creatinine Est GFR (CKD-EPI)AfAm Est GFR (CKD-EPI)NonAf Random Glucose Calcium Total Bilirubin AST ALT Alkaline Phosphatase Total Protein Albumin Urine Color Yellow Urine Appearance Clear Urine pH 5.0 Ur Specific [place] 1.025 Urine Protein Negative Urine Glucose (UA) Negative Urine Ketones Negative Urine Blood Negative Urine Nitrite Negative Urine Bilirubin Negative Urine Urobilinogen 1.0 Ur Leukocyte Esterase Negative RPR Titer 05/24/19 11:05 CXR OF 05/21/19 REVIEWED AND WNL. 05/24/19 11:07 Home Medications Medication Instructions Recorded Darunavir Ethanolate [Prezista -] 800 mg PO DAILY 09/16/16 Emtricitabine/Tenofovir [Truvada -] 1 tab PO DAILY 09/16/16 Ritonavir [Norvir -] 100 mg PO DAILY 09/16/16 Gabapentin [Neurontin] 300 mg PO BID 09/24/16 Albuterol Sulfate Inhaler - 2 inh PO Q4H PRN #1 inhaler 10/08/16 [Ventolin HFA Inhaler -] Budesonide/Formeterol Fumarate 1 inh PO BID #1 inhaler 10/08/16 [SYMBICORT 160/4.5mcg -] Lisinopril [Prinivil] 20 mg PO DAILY #30 tablet 10/08/16 PT NOT TAKING ANTIRETROVIRALS ABOVE. REPORTS CHANGING TO NEW REGIMEN AFTER DISCHARGE TO HER PCP. Assessment: 05/24/19 11:03 NAD MEDICALLY STABLE Plan: PT SIGNED OUT AMA FOLLOW UP WITH CD AFTERCARE RECOMMENDED FOLLOW UP WITH PCP FOR MEDICAL MANAGEMENT SCHEDULED ON 07/19/19.
[2019-05-24 12:17] VITALS: BP 126/84; PULSE 59; TEMP 97.5
== END 2019-05-24 09:42 | disposition left against medical advice (07) | DRG 770 ==
LOC: YASAS 09:08 → Y3E 13:04
PROVIDERS: ADMIT Neuromusculoskeletal Medicine & OMM; ATTEND Neuromusculoskeletal Medicine & OMM
PROC: HZ42ZZZ Group Counseling for Substance Abuse Treatment, Cognitive-Behavioral (ICD-10-PCS; principal; 2019-05-19)
DX: F10.20 Alcohol dependence, uncomplicated (principal); F14.20 Cocaine dependence, uncomplicated; F19.24 Other psychoactive substance dependence with psychoactive substance-induced mood disorder; F32.9 Major depressive disorder, single episode, unspecified; I10 Essential (primary) hypertension; R29.6 Repeated falls; G62.9 Polyneuropathy, unspecified; J45.909 Unspecified asthma, uncomplicated; Z99.89 Dependence on other enabling machines and devices
CPT/HCPCS: 36415; 71046-TC-FY; 80053; 81003; 85027; 86593; 93005; 93010